=== PATIENT | male | born 1995 | race African-American/Black ===

== ENCOUNTER 2019-01-31 16:43 | Emergency (ER) | payer MEDICAID ==
[~2019-01-31] VITALS: Ht 180.3 cm; Wt 75.0 kg
[2019-01-31] MEDS ORDERED: IBUP-2028 PO (17:00)
[2019-01-31] MEDS ORDERED: KETOROLAC 60MG/2ML VIAL IM ONE (17:15)
[2019-01-31 18:46] VITALS: BP 132/84
== END 2019-01-31 18:45 | disposition home or self-care (01) ==
LOC: ER 16:43
DX: R51 Headache (principal); R11.10 Vomiting, unspecified; F12.10 Cannabis abuse, uncomplicated; J45.909 Unspecified asthma, uncomplicated
CPT/HCPCS: 96372; 99283; J1885